=== PATIENT | male | born 1935 | race Caucasian/White ===

== ENCOUNTER 2016-06-28 07:40 | Observation (INO) | payer MEDICARE, BC ==
[~2016-06-28] VITALS: Ht 175.3 cm; Wt 109.5 kg
[2016-06-28] VITALS (9 sets, daily range): BP systolic 102–131; BP diastolic 58–78; PULSE 58–82; TEMP 97.9–98.6
[~2016-06-28 07:40] MED LIST: ADVIL200 MG PO; ALBUTEROL0.83 MG/ML IH; ALEVE 220MG220 MG PO; ALLOPURINOL300 MG PO; AMILORIDE/HCTZ1 TAB PO; ANTI-DIARRHEAL2 MG PO; ASPIRIN 32325 MG/TAB PO; ASPIRIN 81M81 MG/TA2 PO; ASTELIN; ASTELIN NASAL S34 ML NS; ATENOLOL; BACITRACIN Z500 U/GM TP; BENADRYL; BENADRYL ALLERG25 M3 PO; CALTRATE-600 W600 MG PO; CARAFATE 1GM1 G PO; COLACE 100100 MG/CAP PO; DULCOLAX S10 MG/SUPP RC; EPA FISH OIL1000 MG PO; FISH OIL1 IU PO; FLECANIDE; FLEET ENEM1 BOT/133 RC; FLEXERIL 1010 MG/TAB PO; FLOMAX 0.40.4 MG/CAP PO; FLONASE NASAL S16 GM NS; GENTLE LAXATIVE10 MG RC; HCTZ 25MG TAB25 MG PO; K-DUR 10 MEQ T10 MEQ; K-DUR 10 MEQ T10 MEQ PO; LASIX 40MG TABL40 MG PO; LIDODERM PATCH TP; LOTRIMIN AF TP; METAMUCIL3.4 GM/DOS PO; MIDAMOR 5MG TAB5 MG PO; MILK OF MA400 MG/51 PO; MILK OF MA400 MG/52 PO; MIRALAX 17GM PK1 PKT PO; MIRALAX PA17 GM/Dose PO; MODURETIC; NATURE'S TEARS15 M1 OP; NEPHRO-VITE1 TA1 PO; NORCO 325 MG-51 TAB PO; NYSTATIN OR100 MU/ML PO; OMNICEF 300MG300 MG PO; OPTIVAR; ORPHENADRINE C100 MG PO; PEPCID 20MG TAB20 MG PO; PRILOSEC 20MG20 MG PO; PROSCAR; PROSCAR 5MG5 MG PO; QUININE SULFATE; REMERON 15M15 MG/TA1 PO; SENOKOT S 50 MG1 TAB PO; SENOKOT8.6 MG PO; TAMBOCOR; TAMBOCOR 1100 MG/TAB PO; TEARS NATURALE1 EACH OP; TENORMIN 5050 MG/TAB PO; THERA1 TA1 PO; TUMS500 MG PO; TYLENOL 325MG325 MG PO; TYLENOL 500MG500 MG PO; ULTRAM 50MG TAB50 MG PO; UROXATRAL10 M1 PO; VICODIN 5/5001 UDTAB PO; VITAMIN C500 MG PO; VITAMIN E200 I1 PO; XYAL5 MG PO; XYZAL; XYZAL5 MG PO; ZOCOR; ZOCOR 40MG40 MG PO; ZYLOPRIM 300MG300 MG PO; [UNRECOGNIZED DRUG - OTHER]
[2016-06-28] MEDS ORDERED: UROXATRAL10 M1 PO (09:08)
[2016-06-28] MEDS ORDERED: AMOXICILLIN 8751 TAB PO (09:11)
[2016-06-28] MEDS ORDERED: PROBIOTIC FORMU1 CAP PO (09:14)
[2016-06-29 01:42] VITALS: BP 128/65; PULSE 68; TEMP 98.7
[2016-06-29 06:26] VITALS: BP 133/70; PULSE 83; TEMP 98.2
[2016-06-29 10:45] VITALS: BP 131/69; PULSE 62; TEMP 97.7
[2016-06-29 15:39] VITALS: BP 114/51; PULSE 57; TEMP 98.2
[2016-06-29 18:34] VITALS: BP 123/50; PULSE 55; TEMP 98.3
[2016-06-29 22:00] VITALS: BP 112/52; PULSE 53; TEMP 98.2
[2016-06-30 06:00] VITALS: BP 118/55; PULSE 58; TEMP 98
[2016-06-30 09:50] VITALS: BP 118/55; PULSE 58; TEMP 98
[2016-06-30 09:54] VITALS: BP 118/55; PULSE 58; TEMP 98
== END 2016-06-30 12:26 ==
LOC: SDCO 07:40 → JCC 12:23
DX: N32.0 Bladder-neck obstruction (principal); R31.0 Gross hematuria; N32.9 Bladder disorder, unspecified
CPT/HCPCS: G0378; J0690; J1100; J2270; J2405; J2704; J3010; J7030; J7120

== ENCOUNTER → 2016-07-25 | Outpatient (REF) ==
[~2016-07-25] MED LIST changes: +AMOXICILLIN 8751 TAB PO; +EFFEXOR XR37.5 MG/CA PO; +ENEMA RC; +PROBIOTIC FORMU1 CAP PO
== END ==
LOC: ZLAB.WCH 10:40
DX: Z01.89 Encounter for other specified special examinations (principal)

== ENCOUNTER → 2016-07-31 | Outpatient (REF) | LOC: ZLAB.WCH 10:15 | DX: Z01.89 Encounter for other specified special examinations (principal) ==

== ENCOUNTER 2016-09-12 07:16 | Inpatient (IN) | payer MEDICARE, BC ==
[~2016-09-12] VITALS: Ht 177.8 cm; Wt 108.6 kg
[2016-09-12] VITALS (737 sets, daily range): BP systolic 120–146; BP diastolic 73–101; PULSE 82–125; TEMP 97.1–98.3; O2SAT 96–100
[~2016-09-12 07:16] MED LIST changes: -EFFEXOR XR37.5 MG/CA PO; -ENEMA RC
[2016-09-12 07:31] LABS: BASO % 0.5 % (0.0-2.0); EOS # 0.1 (0.0-0.7); EOS % 1.5 % (0-4.0); GRAN # 5.5 (1.4-6.5); GRAN % 74.1 % (42.2-75.2); HEMATOCRIT 47.2 % (42.0-52.0); LYMPH # 1.1 (1.2-3.4); LYMPH % 14.2 % (20.0-51.0); MEAN CELL VOLUME 99 fl (80.0-100.0); MEAN CORPUSCULAR HEMOGLOBIN 32 pg (27.0-31.0); MEAN CORPUSCULAR HGB CONC 32 g/dl (33.0-37.0); MEAN PLATELET VOLUME 9.7 fl (7.4-10.4); MONO # 0.6 (0.1-0.6); MONO % 8.5 % (1.7-9.3); PLATELET COUNT 166 K/mm3 (130-400); RED BLOOD COUNT 4.76 M/mm3 (4.20-5.60); REDCELL DISTRIBUTION WIDTH-CV 14.8 % (11.5-14.5); WHITE BLOOD COUNT 7.4 K/mm3 (4.8-10.8)
[2016-09-12 07:38] LABS: PROTHROMBIN TIME 11.2 SECONDS (9.7-12.8)
[2016-09-12 07:41] LABS: PARTIAL THROMBOPLASTIN TIME 34.2 SECONDS (26.0-37.0)
[2016-09-12] MEDS ORDERED: EFFEXOR XR37.5 MG/CA PO (07:41)
[2016-09-12] MEDS ORDERED: REMERON 15M15 MG/TA1 PO (08:01)
[2016-09-12 08:33] LABS: ARTERIAL BLD GAS O2 SATURATION 92.3 % (92-100); ARTERIAL BLD GAS TCO2 CT 27.3; ARTERIAL BLOOD GAS BASE EXCESS -4.6 (-2-2); ARTERIAL BLOOD GAS HCO3 25.3 meq/L (22-26); ARTERIAL BLOOD GAS PHT 7.19 C (7.35-7.45); ARTERIAL BLOOD GAS PO2 79.9 mmHg (80-100); ARTERIAL BLOOD GAS PO2T 79.9 (80-100); OXYHEMOGLOBIN 91.6 %
[2016-09-12 08:34] LABS: ARTERIAL BLOOD GAS pH 7.19 (7.35-7.45)
[2016-09-12 08:35] LABS: ALLEN TEST YES; ALLENS TEST RESULT PASS; ATS? YES
[2016-09-12 08:41] LABS: ADJUSTED CALCIUM 9.8 mg/dL (8.4-10.2); ALBUMIN 3.3 gm/dL (3.5-5.0); BILIRUBIN,TOTAL 0.8 mg/dL (0.0-1.0); CALCIUM 9.2 mg/dL (8.4-10.2); CREATININE, serum 0.75 mg/dL (0.66-1.25); POTASSIUM 4.4 mmol/L (3.4-5.0); TOTAL PROTEIN 6.5 gm/dL (6.4-8.2)
[2016-09-12 09:29] LABS: TROPONIN-I 0.155 ng/mL (0.000-0.034)
[2016-09-12 09:37] LABS: PH 6 (5-8); SQUAMOUS EPITHELIAL None Seen /hpf; URINE APPEARANCE Clear; URINE BACTERIA None Seen /hpf; URINE BILIRUBIN Negative (NEGATIVE); URINE BLOOD Negative (NEGATIVE); URINE COLOR Yellow; URINE GLUCOSE Negative (NEGATIVE); URINE KETONE Trace (NEGATIVE); URINE RBC 0-2 /hpf; URINE UROBILINOGEN Negative (NEGATIVE)
[2016-09-12 12:14] LABS: ARTERIAL BLD GAS O2 SATURATION 96.8 % (92-100); ARTERIAL BLD GAS TCO2 CT 23.7; ARTERIAL BLOOD GAS BASE EXCESS -3.3 (-2-2); ARTERIAL BLOOD GAS HCO3 22.4 meq/L (22-26); ARTERIAL BLOOD GAS PHT 7.34 C (7.35-7.45); ARTERIAL BLOOD GAS PO2 99.4 mmHg (80-100); ARTERIAL BLOOD GAS PO2T 99.4 (80-100); ARTERIAL BLOOD GAS pH 7.34 (7.35-7.45)
[2016-09-12 12:17] LABS: ATS? YES; VENOUS BLOOD GAS BE -2.8 (-4-4); VENOUS BLOOD GAS SAO2 82.9 % (60-80)
[2016-09-12 12:18] LABS: VENOUS BLOOD GAS SITE CENTRAL LINE
[2016-09-12] MEDS ORDERED: ASTELIN NASAL S34 ML NS (13:11)
[2016-09-12] MEDS ORDERED: ENEMA RC (13:20)
[2016-09-12 16:19] LABS: VENOUS BLOOD GAS BE -5.4 (-4-4); VENOUS BLOOD GAS SAO2 81.6 % (60-80)
[2016-09-12 16:21] LABS: VENOUS BLOOD GAS SITE CENTRAL LINE
[2016-09-12 17:18] LABS: pH GASTRIC CONTENTS 1
[2016-09-13] VITALS (1195 sets, daily range): BP systolic 109–126; BP diastolic 57–75; PULSE 78–89; TEMP 97.8–98.9; O2SAT 90–100
[2016-09-13 00:25] LABS: HEMATOCRIT 40.7 % (42.0-52.0)
[2016-09-13 00:30] LABS: HEMOGLOBIN 12.9 g/dl (13.5-18.0)
[2016-09-13 00:50] LABS: TROPONIN-I 0.132 ng/mL (0.000-0.034)
[2016-09-13 01:16] LABS: ARTERIAL BLD GAS O2 SATURATION 97.4 % (92-100); ARTERIAL BLD GAS TCO2 CT 22.8; ARTERIAL BLOOD GAS BASE EXCESS -3.5 (-2-2); ARTERIAL BLOOD GAS HCO3 21.6 meq/L (22-26); ARTERIAL BLOOD GAS PHT 7.36 C (7.35-7.45); ARTERIAL BLOOD GAS PO2 112.4 mmHg (80-100); ARTERIAL BLOOD GAS PO2T 112.4 (80-100); ARTERIAL BLOOD GAS pH 7.36 (7.35-7.45); OXYHEMOGLOBIN 96.4 %
[2016-09-13 01:17] LABS: ALLEN TEST NO; ATS? YES
[2016-09-13 05:04] LABS: HEMATOCRIT 39.1 % (42.0-52.0); HEMOGLOBIN 12.3 g/dl (13.5-18.0); MEAN CELL VOLUME 101 fl (80.0-100.0); MEAN CORPUSCULAR HEMOGLOBIN 32 pg (27.0-31.0); MEAN CORPUSCULAR HGB CONC 32 g/dl (33.0-37.0); MEAN PLATELET VOLUME 9.4 fl (7.4-10.4); PLATELET COUNT 173 K/mm3 (130-400); RED BLOOD COUNT 3.86 M/mm3 (4.20-5.60); REDCELL DISTRIBUTION WIDTH-CV 15.3 % (11.5-14.5); WHITE BLOOD COUNT 7.7 K/mm3 (4.8-10.8)
[2016-09-13 05:25] LABS: ADD PATHOLOGY DIFF REVIEW NO
[2016-09-13 05:29] LABS: ARTERIAL BLD GAS O2 SATURATION 93.5 % (92-100); ARTERIAL BLD GAS TCO2 CT 21.8; ARTERIAL BLOOD GAS BASE EXCESS -2.7 (-2-2); ARTERIAL BLOOD GAS HCO3 20.8 meq/L (22-26); ARTERIAL BLOOD GAS PHT 7.43 C (7.35-7.45); ARTERIAL BLOOD GAS PO2 66.5 mmHg (80-100); ARTERIAL BLOOD GAS PO2T 66.5 (80-100); ARTERIAL BLOOD GAS pH 7.43 (7.35-7.45); OXYHEMOGLOBIN 92.6 %
[2016-09-13 05:29] LABS: ADJUSTED CALCIUM 9.5 mg/dL (8.4-10.2); ALBUMIN 2.5 gm/dL (3.5-5.0); BILIRUBIN,TOTAL 0.5 mg/dL (0.0-1.0); CALCIUM 8.3 mg/dL (8.4-10.2); CREATININE, serum 0.59 mg/dL (0.66-1.25); PHOSPHOROUS 3.2 mg/dL (2.5-4.5); POTASSIUM 3.8 mmol/L (3.4-5.0); TOTAL PROTEIN 5.1 gm/dL (6.4-8.2)
[2016-09-13 05:31] LABS: ALLEN TEST NO; ATS? YES
[2016-09-13 06:06] LABS: BAND 22 % (0-10); METAMYELOCYTE 1 % (0-0); NEUTROPHILS 64 % (42.0-75.2); PLATELET ESTIMATE NORMAL (NORMAL); TOTAL CELLS COUNTED 100
[2016-09-13 07:18] LABS: TROPONIN-I 0.118 ng/mL (0.000-0.034)
[2016-09-14] VITALS (622 sets, daily range): BP systolic 114–131; BP diastolic 66–87; PULSE 79–96; TEMP 98.4–100.1; O2SAT 82–100
[2016-09-14 05:08] LABS: ARTERIAL BLD GAS O2 SATURATION 94.1 % (92-100); ARTERIAL BLOOD GAS BASE EXCESS -2.7 (-2-2); ARTERIAL BLOOD GAS HCO3 20.1 meq/L (22-26); ARTERIAL BLOOD GAS PHT 7.46 C (7.35-7.45); ARTERIAL BLOOD GAS PO2 71.3 mmHg (80-100); ARTERIAL BLOOD GAS PO2T 71.3 (80-100); ARTERIAL BLOOD GAS pH 7.46 (7.35-7.45); OXYHEMOGLOBIN 93.2 %
[2016-09-14 05:09] LABS: ALLEN TEST NO; ATS? YES
[2016-09-14 05:17] LABS: BASO % 0.1 % (0.0-2.0); GRAN # 7.3 (1.4-6.5); GRAN % 84.1 % (42.2-75.2); LYMPH # 0.4 (1.2-3.4); LYMPH % 4.5 % (20.0-51.0); MEAN CELL VOLUME 101 fl (80.0-100.0); MEAN CORPUSCULAR HGB CONC 31 g/dl (33.0-37.0); MEAN PLATELET VOLUME 9.7 fl (7.4-10.4); MONO # 0.9 (0.1-0.6); MONO % 10.3 % (1.7-9.3); PLATELET COUNT 138 K/mm3 (130-400); RED BLOOD COUNT 3.25 M/mm3 (4.20-5.60); REDCELL DISTRIBUTION WIDTH-CV 15.5 % (11.5-14.5); WHITE BLOOD COUNT 8.7 K/mm3 (4.8-10.8)
[2016-09-14 05:20] LABS: HEMATOCRIT 32.8 % (42.0-52.0); HEMOGLOBIN 10.3 g/dl (13.5-18.0); MEAN CORPUSCULAR HEMOGLOBIN 32 pg (27.0-31.0)
[2016-09-14 05:27] LABS: ADJUSTED CALCIUM 9.4 mg/dL (8.4-10.2); ALBUMIN 2.5 gm/dL (3.5-5.0); BILIRUBIN,TOTAL 0.6 mg/dL (0.0-1.0); CALCIUM 8.2 mg/dL (8.4-10.2); CREATININE, serum 0.61 mg/dL (0.66-1.25); MAGNESIUM 1.9 mg/dL (1.6-2.3); PHOSPHOROUS 1.5 mg/dL (2.5-4.5); POTASSIUM 3.5 mmol/L (3.4-5.0); TOTAL PROTEIN 4.7 gm/dL (6.4-8.2)
[2016-09-15] VITALS (864 sets, daily range): BP systolic 102–117; BP diastolic 54–73; PULSE 75–96; TEMP 98.2–98.8; O2SAT 32–97
[2016-09-15 05:15] LABS: ARTERIAL BLD GAS O2 SATURATION 94.9 % (92-100); ARTERIAL BLD GAS TCO2 CT 25.6; ARTERIAL BLOOD GAS HCO3 24.5 meq/L (22-26); ARTERIAL BLOOD GAS PHT 7.46 C (7.35-7.45); ARTERIAL BLOOD GAS PO2 75.5 mmHg (80-100); ARTERIAL BLOOD GAS PO2T 75.5 (80-100); ARTERIAL BLOOD GAS pH 7.46 (7.35-7.45)
[2016-09-15 05:16] LABS: ATS? NO
[2016-09-15 05:20] LABS: BASO % 0.1 % (0.0-2.0); EOS % 0.4 % (0-4.0); GRAN # 5.5 (1.4-6.5); GRAN % 75.9 % (42.2-75.2); LYMPH # 0.8 (1.2-3.4); LYMPH % 11.1 % (20.0-51.0); MEAN CELL VOLUME 99 fl (80.0-100.0); MEAN CORPUSCULAR HGB CONC 32 g/dl (33.0-37.0); MEAN PLATELET VOLUME 9.3 fl (7.4-10.4); MONO # 0.8 (0.1-0.6); PLATELET COUNT 119 K/mm3 (130-400); RED BLOOD COUNT 3.22 M/mm3 (4.20-5.60); REDCELL DISTRIBUTION WIDTH-CV 15.7 % (11.5-14.5); WHITE BLOOD COUNT 7.2 K/mm3 (4.8-10.8)
[2016-09-15 05:21] LABS: HEMOGLOBIN 10.2 g/dl (13.5-18.0); MEAN CORPUSCULAR HEMOGLOBIN 32 pg (27.0-31.0)
[2016-09-15 05:37] LABS: ADJUSTED CALCIUM 9.1 mg/dL (8.4-10.2); ALBUMIN 2.5 gm/dL (3.5-5.0); BILIRUBIN,TOTAL 0.5 mg/dL (0.0-1.0); CALCIUM 7.9 mg/dL (8.4-10.2); CREATININE, serum 0.6 mg/dL (0.66-1.25); MAGNESIUM 1.7 mg/dL (1.6-2.3); PHOSPHOROUS 2.2 mg/dL (2.5-4.5); TOTAL PROTEIN 4.6 gm/dL (6.4-8.2)
[2016-09-15 06:02] LABS: POTASSIUM 2.8 mmol/L (3.4-5.0)
[2016-09-16] VITALS (480 sets, daily range): O2SAT 31–82
== END 2016-09-16 13:45 | disposition expired | DRG 208 ==
LOC: COL.ER 07:16 → ICU 09:05 → COL.ER 09:05 → MEDICAL 09-16 10:13 → ICU 09-16 10:13 → MEDICAL 09-16 10:13 → ICU 09-16 13:45
PROVIDERS: Anesthesiology Critical Care Medicine; Emergency Medicine; Internal Medicine; Internal Medicine Pulmonary Disease
PROC: 0BH17EZ Insertion of Endotracheal Airway into Trachea, Via Natural or Artificial Opening (ICD-10-PCS; principal; 2016-09-12)
PROC: 5A1945Z Respiratory Ventilation, 24-96 Consecutive Hours (ICD-10-PCS; 2016-09-12)
DX: J96.01 Acute respiratory failure with hypoxia (principal); A41.02 Sepsis due to Methicillin resistant Staphylococcus aureus; E87.2 Acidosis; I69.354 Hemiplegia and hemiparesis following cerebral infarction affecting left non-dominant side; Z66 Do not resuscitate; Z51.5 Encounter for palliative care; Q85.00 Neurofibromatosis, unspecified; I10 Essential (primary) hypertension; R56.9 Unspecified convulsions; I48.2 Chronic atrial fibrillation
CPT/HCPCS: 99223-AI; 99233-AI; 99239; C1751; C9113; J0696; J1644; J1650; J1720; J1940; J1956; J2060; J2250; J2270; J2543; J2704; J3010; J3370; J3480; J7030; J7050; P9047; Q2009